=== PATIENT | male | born 1970 | race Caucasian/White ===

== ENCOUNTER 2025-01-09 06:26 | Day surgery (SDC) | payer BC, SELFPAY | END 2025-01-09 13:33 | disposition home or self-care (01) | LOC: GI 06:26 | PROVIDERS: ATTENDING PHYSICIAN Specialist | DX: Z12.11 Encounter for screening for malignant neoplasm of colon (principal); D12.3 Benign neoplasm of transverse colon; K63.5 Polyp of colon; K64.8 Other hemorrhoids; Z86.0101 Personal history of adenomatous and serrated colon polyps | CPT/HCPCS: 45385; 88305 ==